=== PATIENT | female | born 1950 | race African-American/Black ===

== ENCOUNTER 2017-03-05 16:02 | Inpatient (IN) | payer OTHER ==
[~2017-03-05] VITALS: Ht 165.1 cm; Wt 88.4 kg
--- NOTE | ~2017-03-05 | HC ---
[facility] [place] [address] CONSULTATION Name: AURORA GARCES Room #: 537-P ADM IN M.R.#: [id number] Admission: 03/06/17 Attend Phys: Rashard Corral MD Discharge: Date of : 54 Report #: [id number] THIS REPORT FOR: //name// CC: Mary Brooks DATE OF SERVICE: 03/06/2017 CHIEF COMPLAINT: Right-sided abdominal pain. HISTORY OF PRESENT ILLNESS: The patient is a very pleasant 66-year-old female patient admitted to [facility] on March 05 complaining of right-sided abdominal pain. She has had loose stools over the past 4 months approximately. The patient had previously undergone ileocecectomy apparently at [facility] in 2012. This was either for colon cancer or for an adenoma that could not be removed with colonoscopy alone. The patient is somewhat of a difficult historian and many details are not clear. She reports that over the past 48 hours, she has had severe right-sided abdominal pain. She has had some nausea and vomiting as well. She has had 4-5 loose stools daily. The pain does not seem to be postprandial, but it does seem to be worsened by moving in ceratin positions, especially with leaning forward. She has had a nonproductive cough. She was seen by family practice physician and was referred to the emergency department for evaluation. The patient has end-stage renal disease and is on peritoneal cyanosis. The patient lives alone. The patient has also had a ventral incisional hernia repair at [facility], this was done with mesh. PAST MEDICAL HISTORY: Positive for hypertension, previous cerebrovascular accident in 2006, chronic kidney disease with end-stage renal disease on peritoneal dialysis. PAST SURGICAL HISTORY: 1. Ileocecectomy versus right hemicolectomy with primary stapled anastomosis in approximately 2012. 2. Ventral incisional hernia approximately 2012 at [facility], repaired with mesh. REPORTED MEDICATIONS: Include hydrochlorothiazide 25 mg daily, metformin unknown dose. ALLERGIES: INCLUDE SULFA. REVIEW OF SYSTEMS: CONSTITUTIONAL: Negative for fevers, chills or unwanted weight loss. PULMONARY: No productive cough, no shortness of breath. CARDIOVASCULAR: No chest pain or palpitation. GASTROINTESTINAL: Positive for abdominal pain, nausea, vomiting and diarrhea as per the HPI. MUSCULOSKELETAL: No back pain or joint swelling. CUTANEOUS: Negative for new lesions or rashes. NEUROLOGIC: No focal weakness or numbness. Cranial nerves are intact. ENDOCRINE: No heat or cold intolerance. RENAL: Positive for [facility] [address] [place] [address] CONSULTATION Name: AURORA GARCES Room #: 537-P [facility] IN M.R.#: [id number] Admission: 03/06/17 Attend Phys: Rashard Corral MD Discharge: Date of : 54 Report #: [id number] end-stage renal disease on peritoneal analysis. PSYCHIATRIC: No depression or anxiety. PHYSICAL EXAMINATION: VITAL SIGNS: The patient is afebrile and nontoxic in appearance. Her pulse is ranging in the 70s to low 80s, respirations of 16-20, she is normotensive, maintaining saturation well on room air. GENERAL: She is awake, alert and oriented. Normal mood and affect. She does speak fluently, no sign of aphasia. HEENT: No icterus. Mucosae are pink and moist. NECK: No jugular venous distention. HEART: Regular rate and rhythm. LUNGS: Clear to auscultation. No respiratory distress. ABDOMEN: Soft, minimally tender in the right upper quadrant. No rebound or guarding. No palpable hernia. Well healed incisions noted. Certainly no peritoneal signs at this time. Peritoneal dialysis catheter in the left upper abdomen, site is secure without erythema or crepitus. SKIN: With multiple facial nevi, but no obvious rashes or lesions. EXTREMITIES: 1+ lower extremity edema. Extremities are well perfused, no cyanosis. NEUROLOGIC: No focal deficits. LABORATORY DATA: Reviewed. White count of 7.8. No left shift, hemoglobin of 10.2, platelets of 241. Sodium 143, potassium 4.2, chloride 106, CO2 of 27. BUN 37, creatinine of 14.1, phosphorus 8.8, magnesium 1.6, total bilirubin of 0.3, AST of 40, ALT of 62, alkaline phosphatase of 49, albumin of 2.1. TSH of 0.647. CT scan of the abdomen and pelvis without contrast was obtained yesterday. This was reviewed with radiologist in detail. Multiple pulmonary nodules are noted, which are indeterminate in etiology. Ascites is noted consistent with peritoneal dialysis. No obvious thickening or inflammation of the bowel or the colon, well healed anastomosis is noted. No free air is noted. Small hiatal hernia, but no abdominal wall hernia is appreciated on detailed examination of the abdominal wall on CT scan. Gallbladder is contracted with no dilatation of the biliary tree. No obvious retroperitoneal adenopathy is appreciated. Abdominal ultrasound was reviewed, this shows gallbladder without thickening, pericholecystic fluid or other abnormalities, common bile duct 2.1 cm. Chest x-ray, no acute cardiopulmonary process. Chest CT reviewed and this as mentioned above shows multiple scattered subcentimeter noncalcified pulmonary nodules, largest being 7 mm in diameter consistent with granulomatous exposure. Also noted calcified lymph nodes in the mediastinum. 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 IMPRESSION AND PLAN: 1. 66-year-old female patient with end-stage renal disease on peritoneal dialysis with approximately 4-month history of loose stools status post ileocecectomy versus right hemicolectomy for possible colon cancer in approximately 2012. Records from that treatment and operative notes are unfortunately not available at this time. 48 hours of worsened right-sided abdominal pain, which seems to be worsened with exertion in certain movements, but does not seem to be worsened postprandial. CT scan and ultrasound not [facility] [address] [place] [address] CONSULTATION Name: GARCESAURORA Room #: 537-P [facility] IN M.R.#: [id number] Admission: 03/06/17 Attend Phys: Rashard Corral MD Discharge: Date of : 54 Report #: [id number] remarkable for colitis or cholecystitis per se. Preliminary review of stool sample is negative for Clostridium difficile toxin at this time, but final analysis is pending. Liver function tests and white blood cell count normal, and the patient is afebrile without peritonitis at this time. RECOMMENDATIONS: 1. No immediate recommendation for surgical intervention. Agree with plan for PIPIDA scan to better evaluate the hepatobiliary tree. 2. Consider gastroenterology evaluation given the above-mentioned findings. 3. Pulmonary nodules will need further investigation, consider pulmonary medicine evaluation. 4. Consultation very much appreciated. We will continue to follow closely and make further recommendations based upon clinical status. Greater than 1 hour was utilized reviewing the patient's records, CT scans and reviewing the patient, examining the patient and discussing with various members of the medical team. <ELECTRONICALLY SIGNED> By: Luis Alberto Grier MD 03/10/17 1020 [id number] 1825 Luis Alberto Grier MD /nt
--- NOTE | ~2017-03-05 | P ---
[facility] [place] [address] PROCEDURE REPORT Name: AURORA GARCES Room #: 537-P [facility] IN M.R.#: [id number] Admission: 03/06/17 Attend Phys: Rashard Corral MD Discharge: 03/10/17 Date of : 54 Report #: [id number] THIS REPORT FOR: //name// CC: Luis Alberto Brooks DATE OF SERVICE: 03/10/2017 PROCEDURE PERFORMED: Colonoscopy with polypectomies and biopsies. HISTORY OF PRESENT ILLNESS: The patient is a 66-year-old female with chronic diarrhea beginning after she had a right hemicolectomy apparently for a large polyp that could not be removed endoscopically. C. diff and stool studies have all been negative. She also reports intermittent right upper quadrant abdominal pain. PIPIDA scan was done. Ejection fraction was mildly decreased. There was no pain associated with CCK injection. General Surgery has been evaluating. Plan is for colonoscopy. DESCRIPTION OF PROCEDURE: The risks and benefits of the procedure were explained to the patient, those risks including but not limited to bleeding, perforation, the risk of sedation. She understood these risks and gave informed consent. Sedation was given using propofol per anesthesia. Next, a digital rectal exam was initially performed, which was normal. Next, using a standard Fujinon colonoscope, the scope was placed in the patient's anus and advanced under direct vision to the right colon, at which point, the surgical anastomosis was noted. This was well healed and widely patent. I was able to advance the scope into the terminal ileum, which was normal. The scope was then slowly withdrawn. The remaining transverse colon was normal. Random biopsies were obtained today to rule out the possibility of microscopic colitis. A 5 mm sessile polyp was noted in the descending colon. This was removed by snare cautery, otherwise normal. Sigmoid colon was normal. A few small 2-3 mm polyps were noted in the rectum. These appear to be consistent with hyperplastic polyps. Several biopsies were obtained today. On retroflexion, small nonbleeding internal hemorrhoids were noted, otherwise normal colonoscopy. The scope was then withdrawn and the procedure terminated. The patient tolerated the procedure well. IMPRESSION: 1. Surgical changes in the right colon noted. 2. Descending colon polyp. 3. Small rectal polyps. 4. Internal hemorrhoids. [address] [address] PROCEDURE REPORT Name: MILIAURORA Umang Room #: 537-P [facility] IN .R.#: [id number] Admission: 03/06/17 Attend Phys: Rashard Corral MD Discharge: 03/10/17 Date of : 54 Report #: [id number] RECOMMENDATIONS: 1. Await biopsy results. 2. We recommended trial of Questran on a daily basis. Thank you for allowing me to participate in her care. <ELECTRONICALLY SIGNED> By: Marquez Pathak MD 03/13/17 0818 1329 2144 Marquez Pathak MD /nt
--- NOTE | ~2017-03-05 | S ---
[facility] [place] [address] SURGICAL PATH RPT PROCEDURE Name: AURORA GAINES Room #: 537-P DIS IN M.R.#: [id number] Admission: 03/06/17 Date of : 54 Discharge: 03/10/17 Report #: [id number] Path Case #: [id number] PATHOLOGY REPORT COLLECTION DATE: 03/10/2017 RECEIVED DATE: 03/11/2017 SUBMITTING PHYS: Dr. Marquez Pathak OTHER PHYS: Dr. Ellis Brooks SPECIMEN(S) RECEIVED: A.Bx of random colon B.Polyp at descending colon C.Polyp at rectum * * * * * * * * * * * * FINAL DIAGNOSIS: A. Large intestine mucosa, of random colon, endoscopic biopsy: - Non-specific focal active cryptitis and hyperplastic changes, see comment. - Negative for dysplasia or malignancy. B. Polyp, at descending colon, endoscopic biopsy: - Hyperplastic polyp. - Negative for dysplasia. C. Polyp, at rectum, endoscopic biopsy: - Hyperplastic polyp. - Negative for dysplasia. COMMENT: Sections of colon biopsy tissues show crypts at regular intervals with a subtle increase in cellularity of lamina propria, which is comprised of eosinophils along with lymphocytes and plasma cells. An occasional crypt shows cryptitis. There are no granulomata or viral inclusions. The collagen layer underneath the epithelium is not thickened. There is no increase in the intraepithelial lymphocytes. There is no distortion in crypt architecture as well. There is no evidence of dysplasia or malignancy. Based on the morphology, the differential diagnosis includes bowel preparation, a resolved episode of colitis or a medication induced colitis. PATHOLOGIST: Therese Neil M.D. REPORT ELECTRONICALLY SIGNED BY: Therese Neil M.D. DATE/TIME: 03/12/2017 15:44 * * * * * * * * * * * * [address] [address] SURGICAL PATH RPT PROCEDURE Name: AURORA GAINES Umang Room #: 537-P [facility] IN [facility].#: [id number] Admission: 03/06/17 Date of : 54 Discharge: 03/10/17 Report #: [id number] Path Case #: [id number] GROSS PATHOLOGY: A. Received in formalin labeled "Aurora Eder, biopsy of random:," are six segments of jo soft tissue measuring 1.2 x 1.2 x 0.2 cm in aggregate dimensions and ranging from 0.3 to 0.5 cm in maximum dimension. The specimen is submitted entirely in cassette A1. B. Received in formalin labeled "Aurora Thomasaniel, polyp of descending colon," is a segment of jo soft tissue measuring 0.6 cm in maximum dimension. The specimen is submitted entirely in cassette B1. C. Received in formalin labeled "Aurora Eder, polyp at rectum-multiple," are four segments of jo soft tissue measuring 0.9 x 0.8 x 0.1 cm in aggregate dimensions and ranging from 0.2 to 0.6 cm in maximum dimension. The specimen is submitted entirely in cassette C1. (CAA; 03/11/2017) CLINICAL HISTORY: Pre-op diagnosis: Abdominal pain, chronic diarrhea Post-op diagnosis: Internal hemorrhoids, colon and rectal polyps INITIAL CPT CODE(S): A; 09495 B; 68842 C; 12104 Professional services performed by [facility] at [place] [address] [address], [place] [address] Technical services performed by [facility] at [address] [place] [address], [address], [place] [address]. [facility] [address] [place] [address] PHONE: [phone] DIRECTOR: Jun Lewis M.D. * * * END OF REPORT * * *
--- NOTE | ~2017-03-05 | HC ---
[facility] [place] [address] CONSULTATION Name: AURORA GARCES Room #: 537-P ADM IN M.R.#: [id number] Admission: 03/06/17 Attend Phys: Mary Durbin Discharge: Date of : 54 Report #: [id number] THIS REPORT FOR: //name// CC: Mary Brooks DATE OF SERVICE: 03/06/2017 REASON FOR CONSULTATION: End-stage renal disease in this patient on peritoneal dialysis who presents with abdominal pain. HISTORY OF PRESENT ILLNESS: This 66-year-old female has end-stage renal disease of uncertain etiology. She reports that she was started on peritoneal dialysis approximately 2 years ago by at [facility]. She has been maintained on peritoneal dialysis since that time. She denies a prior known history of peritonitis. She has developed increasing abdominal pain over the past several days. She has also had a diarrheal illness, though she does have chronic diarrhea as well. She denies nausea or vomiting. She denies fevers, chills, sweats, or other constitutional complaints. PAST MEDICAL HISTORY: Remarkable for end-stage renal disease as described. She has known hypertension. She has undergone previous fistula placement without success. She is status post previous CVA in 2006 and underwent brain aneurysm coiling at that time. She has a history of colon cancer status post partial colectomy in 2012. MEDICATIONS ON ADMISSION: Reported to include an unknown blood pressure medicine. ALLERGIES: She acknowledges allergy to SULFA. PHYSICAL EXAMINATION: GENERAL: Reveals a well-developed, well-nourished female, in no acute distress. VITAL SIGNS: Blood pressure 109/66, temperature 98.2, and pulse 73. SKIN: Warm and dry. There is no gross clubbing, cyanosis, edema, or adenopathy. HEENT: The head is normocephalic and atraumatic. The sclerae are white and the conjunctivae are not injected. The pharynx is benign. NECK: Supple. LUNGS: [place] are grossly clear to percussion and auscultation. CARDIOVASCULAR: Reveals a regular rate and rhythm without rub. ABDOMEN: Soft and nontender. EXTREMITIES: There is a PD catheter exit site, which is clean and dry. NEUROLOGIC: Reveals the patient to be alert and cooperative with a nonfocal exam. [address] [address] CONSULTATION Name: AURORA GARCES Room #: 537-P [facility] IN M.R.#: [id number] Admission: 03/06/17 Attend Phys: Mary Durbin Discharge: Date of : 54 Report #: [id number] LABORATORY STUDIES: Available at this time include sodium 143, potassium 4.2, chloride 106, CO2 of 27, BUN 37, creatinine of 14.1, and glucose 99. White blood cell count 7800, hemoglobin 9.0, hematocrit 27.7, and platelet count 241,000. ASSESSMENT: 1. Acute abdominal pain in this patient on peritoneal dialysis, though her examination is not remarkable at this time. Abdominal pain in a patient on peritoneal dialysis is peritonitis until proven otherwise. So far, no peritoneal dialysis fluid studies have been ordered. I will make arrangements with acute dialysis service to obtain peritoneal dialysis fluid cell count and culture as soon as possible. We will await antibiotic therapy pending her cell count results. 2. End-stage renal disease, on maintenance cycler-assisted nocturnal peritoneal dialysis. 3. Hypertension. 4. Anemia of chronic kidney disease. PLAN: The patient will likely require additional GI evaluation in view of her symptoms. We will arrange nocturnal dialysis as described. Please see orders. <ELECTRONICALLY SIGNED> By: Hernan Muniz MD 03/09/17 0641 1518 1833 Hernan Muniz MD /nt
[~2017-03-05 16:02] MED LIST: GLUCOPHAGE; HYDROCHLOROTHIA25 M1 PO; unknown bp med
[2017-03-05 16:03] VITALS: BP 134/79
[2017-03-05 17:29] LABS: ABSOLUTE NEUTROPHILS 4.6 thou/uL (1.4-8.2); BASOPHILS 0.6 % (0.0-2.0); EOSINOPHILS 4.6 % (0.0-3.0); HEMATOCRIT 31.6 % (37.0-47.0); HEMOGLOBIN 10.2 gm/dL (12.0-15.0); LYMPHOCYTES 24.3 % (24.0-44.0); MCH 31.1 pg (26.0-34.0); MCHC 32.4 g/dL (28.0-37.0); MCV 95.9 fL (80.0-100.0); MONOCYTES 11.5 % (1.0-8.0); PLATELET COUNT 241 thou/uL (150-400); RBC 3.29 mil/uL (4.20-5.00); RDW 17.1 % (10.5-14.5); WBC 7.8 thou/uL (4.0-11.0)
[2017-03-05 17:30] LABS: MANUAL DIFF NO
[2017-03-05 17:40] LABS: ANION GAP 11 mmol/L (7-16); BUN 34 mg/dL (7-18); CALCIUM 9.2 mg/dL (8.5-10.1); CHLORIDE 105 mmol/L (98-107); CO2 27 mmol/L (21-32); CREATININE 13.5 mg/dL (0.6-1.0); GLUCOSE 107 mg/dL (74-106); SODIUM 143 mmol/L (136-145)
[2017-03-05 17:46] LABS: ALBUMIN 2.5 g/dL (3.4-5.0); ALKALINE PHOSPHATASE 56 U/L (46-116); DIRECT BILIRUBIN < 0.1 mg/dL (<0.1-0.3); SGOT 63 U/L (15-37); SGPT 81 U/L (30-65); TOTAL BILIRUBIN 0.3 mg/dL (<0.1-1.0); TOTAL PROTEIN 6.7 g/dL (6.4-8.2)
[2017-03-05 19:32] VITALS: BP 133/84
[2017-03-05 19:59] VITALS: BP 161/96
[2017-03-05 23:49] VITALS: BP 146/86
[2017-03-06 04:19] VITALS: BP 117/67
[2017-03-06 05:39] LABS: HEMATOCRIT 27.7 % (37.0-47.0)
[2017-03-06 05:50] LABS: ALBUMIN 2.1 g/dL (3.4-5.0); CALCIUM 8.2 mg/dL (8.5-10.1); CREATININE 14.1 mg/dL (0.6-1.0); MAGNESIUM 1.6 mg/dL (1.8-2.4); PHOSPHORUS 8.8 mg/dL (2.5-4.9); POTASSIUM 4.2 mmol/L (3.5-5.1); TOTAL BILIRUBIN 0.3 mg/dL (<0.1-1.0); TOTAL PROTEIN 5.4 g/dL (6.4-8.2)
[2017-03-06 08:16] VITALS: BP 109/66
[2017-03-06 13:15] VITALS: BP 105/55
[2017-03-06 20:09] VITALS: BP 125/74
[2017-03-06 21:06] LABS: HEPATITIS C VIRUS AB 0.3 (0.0-0.9)
[2017-03-07 03:38] VITALS: BP 113/73
[2017-03-07 03:44] LABS: HEMATOCRIT 29.8 % (37.0-47.0); HEMOGLOBIN 9.6 gm/dL (12.0-15.0); MCHC 32.3 g/dL (28.0-37.0); RBC 3.1 mil/uL (4.20-5.00); RDW 16.2 % (10.5-14.5); WBC 5.7 thou/uL (4.0-11.0)
[2017-03-07 03:57] LABS: ALBUMIN 2.2 g/dL (3.4-5.0); CALCIUM 8.1 mg/dL (8.5-10.1); MAGNESIUM 1.6 mg/dL (1.8-2.4); PHOSPHORUS 8.2 mg/dL (2.5-4.9); POTASSIUM 4.1 mmol/L (3.5-5.1); TOTAL BILIRUBIN 0.3 mg/dL (<0.1-1.0)
[2017-03-07 07:08] VITALS: BP 108/59
[2017-03-07 10:39] LABS: CLARITY CLEAR; COLOR YELLOW; TOTAL VOLUME 250 mL
[2017-03-07 10:49] LABS: BF NUCLEATED CELLS 18; BF RBC 54
[2017-03-07 11:24] LABS: MANUAL DIFF YES
[2017-03-07 11:25] LABS: BF COMMENTS 0; BF MACROPHAGE 32; BF NEUTROPHILS 9
[2017-03-07 12:09] VITALS: BP 123/94
[2017-03-07 15:33] VITALS: BP 119/59
[2017-03-07 19:45] VITALS: BP 124/73
[2017-03-07 23:54] VITALS: BP 106/59
[2017-03-08 03:07] LABS: BODY FLUID ALBUMIN 0.1 g/dL (()); BODY FLUID AMYLASE 3 U/L (()); BODY FLUID GLUCOSE 548 mg/dL (()); BODY FLUID LDH 8 IU/L (()); BODY FLUID PROTEIN 0.2 g/dL (())
[2017-03-08 03:33] VITALS: BP 103/52
[2017-03-08 06:26] LABS: HEMATOCRIT 30.7 % (37.0-47.0); HEMOGLOBIN 9.8 gm/dL (12.0-15.0); MCH 30.7 pg (26.0-34.0); MCHC 31.9 g/dL (28.0-37.0); MCV 96.3 fL (80.0-100.0); RBC 3.19 mil/uL (4.20-5.00); RDW 16.4 % (10.5-14.5); WBC 5.8 thou/uL (4.0-11.0)
[2017-03-08 06:46] LABS: ALBUMIN 2.1 g/dL (3.4-5.0); CALCIUM 7.7 mg/dL (8.5-10.1); CREATININE 15.1 mg/dL (0.6-1.0); PHOSPHORUS 8.2 mg/dL (2.5-4.9); POTASSIUM 4.8 mmol/L (3.5-5.1)
[2017-03-08 07:15] VITALS: BP 112/56
[2017-03-08] MEDS ORDERED: CATAPRES0.2 MG PO (08:20)
[2017-03-08] MEDS ORDERED: HYDRALAZINE 5050 MG PO (08:20)
[2017-03-08] MEDS ORDERED: NEXIUM40 MG PO (08:21)
[2017-03-08] MEDS ORDERED: AMLODIPINE BESYL5 MG PO (08:21)
[2017-03-08] MEDS ORDERED: NEPHROCAPS SOFT1 CAP PO (08:21)
[2017-03-08] MEDS ORDERED: CARVEDILOL25 MG PO (08:21)
[2017-03-08] MEDS ORDERED: SENSIPAR 30 MG30 M1 PO (08:22)
[2017-03-08 11:19] VITALS: BP 115/67
[2017-03-08 15:49] VITALS: BP 101/53
[2017-03-08 20:45] VITALS: BP 116/66
[2017-03-09 02:50] VITALS: BP 107/66
[2017-03-09 07:15] VITALS: BP 113/71
[2017-03-09 15:00] VITALS: BP 115/64
[2017-03-09 19:54] VITALS: BP 128/71
[2017-03-10] VITALS (9 sets, daily range): BP systolic 118–137; BP diastolic 64–84
[2017-03-10 04:44] LABS: HEMATOCRIT 28.1 % (37.0-47.0); HEMOGLOBIN 9.3 gm/dL (12.0-15.0); MCH 31.3 pg (26.0-34.0); MCV 94.8 fL (80.0-100.0); RBC 2.97 mil/uL (4.20-5.00); WBC 5.2 thou/uL (4.0-11.0)
[2017-03-10 04:57] LABS: CALCIUM 7.1 mg/dL (8.5-10.1); CREATININE 14.9 mg/dL (0.6-1.0); PHOSPHORUS 7.1 mg/dL (2.5-4.9); POTASSIUM 3.7 mmol/L (3.5-5.1)
== END 2017-03-10 18:51 | disposition home or self-care (01) | DRG 391 ==
LOC: ER 16:02 → EROBS 18:30 → 4W 19:32 → 5S 03-06 11:33
PROVIDERS: Emergency Medicine; Hospitalist; Internal Medicine Nephrology; Nurse Practitioner Acute Care
PROC: 0DBM8ZX Excision of Descending Colon, Via Natural or Artificial Opening Endoscopic, Diagnostic (ICD-10-PCS; principal; 2017-03-10)
PROC: 0DBP8ZX Excision of Rectum, Via Natural or Artificial Opening Endoscopic, Diagnostic (ICD-10-PCS; principal; 2017-03-10)
PROC: 3E1M39Z Irrigation of Peritoneal Cavity using Dialysate, Percutaneous Approach (ICD-10-PCS; principal; 2017-03-10)
DX: K52.9 Noninfective gastroenteritis and colitis, unspecified (principal); N18.6 End stage renal disease; E43 Unspecified severe protein-calorie malnutrition; K85.90 Acute pancreatitis without necrosis or infection, unspecified; I12.0 Hypertensive chronic kidney disease with stage 5 chronic kidney disease or end stage renal disease; D12.4 Benign neoplasm of descending colon; D12.8 Benign neoplasm of rectum; R91.1 Solitary pulmonary nodule; Z60.2 Problems related to living alone; K64.8 Other hemorrhoids; R91.8 Other nonspecific abnormal finding of lung field; E83.39 Other disorders of phosphorus metabolism; D63.1 Anemia in chronic kidney disease; E66.9 Obesity, unspecified; Z68.32 Body mass index [BMI] 32.0-32.9, adult; Z86.73 Personal history of transient ischemic attack (TIA), and cerebral infarction without residual deficits; Z85.038 Personal history of other malignant neoplasm of large intestine; Z90.710 Acquired absence of both cervix and uterus; Z88.2 Allergy status to sulfonamides; Z82.49 Family history of ischemic heart disease and other diseases of the circulatory system; Z80.8 Family history of malignant neoplasm of other organs or systems
CPT/HCPCS: 10040; 10086; 33000; 62110; 62900; 70005

== ENCOUNTER → 2017-10-28 | Outpatient (CLI) | payer OTHER ==
[~2017-10-28] MED LIST changes: +AMLODIPINE BESYL5 MG PO; +CARVEDILOL25 MG PO; +CATAPRES0.2 MG PO; +COLESTID1 GM PO; +FLAGYL 250 MG250 MG PO; +HYDRALAZINE 5050 MG PO; +NEPHROCAPS SOFT1 CAP PO; +NEXIUM40 MG PO; +SENSIPAR 30 MG30 M1 PO
== END ==
LOC: RAD 15:32
DX: J98.11 Atelectasis (principal)

== ENCOUNTER → 2017-12-11 | Outpatient (CLI) | payer OTHER ==
[2017-12-11 09:48] LABS: CREATININE 17.1 mg/dL (0.6-1.0)
== END ==
LOC: CAT 08:30
PROVIDERS: Family Medicine
DX: R05 Cough (principal); K44.9 Diaphragmatic hernia without obstruction or gangrene; R93.8 Abnormal findings on diagnostic imaging of other specified body structures